=== PATIENT | male | born 1975 ===

== ENCOUNTER 2018-03-10 12:11 | Emergency (ER) | payer MEDICARE ==
--- NOTE | 2018-03-10 12:26 | ER Report ---
History and Physical Time Seen By MD: 12:26 Hx. of Stated Complaint: LOSS OF APPETITE, WEAKNESS, ANXIETY HPI/ROS CHIEF COMPLAINT: Vomiting, nausea, unable to eat HISTORY OF PRESENT ILLNESS: 43-year-old male patient presents to emergency room with complaint of vomiting, nausea, unable to eat. Patient states that this been going on for the past month. He states over that time he's lost proximal to 25 pounds. He states that historically been taking marijuana to help with his appetite, however he is not been taking that. He does have significant amounts of anxiety associated with eating. He states that is due to his history of throat cancer and surgeries he has had associated with that. Patient states that he did have a PEG tube which was placed. He states that during that surgery that they had some arteries and he never healed right. Patient states he has persistent pain with eating as a result of that. He denies having any fevers or chills. He states his been trying to drink plenty of fluids. REVIEW OF SYSTEMS: Respiratory: No cough, no dyspnea. Cardiovascular: No chest pain, no palpitations. Gastrointestinal: As noted above Musculoskeletal: No back pain. Allergies: Coded Allergies: metoclopramide (Verified Allergy, Unknown, 03/10/18) ondansetron (Verified Allergy, Unknown, 03/10/18) STATES "I CAN HAVE THE BRAND NAME, BUT NOT THIS" promethazine (Verified Allergy, Unknown, 03/10/18) Home Meds Active Scripts Hydrocodone Bit/Acetaminophen (HYDROCODON-ACETAMINOPHEN 5-325) 1 Each Tablet, 1 EACH PO Q4-6H PRN for PAIN, #8 TAB Prov:BANDAR NUNEZP 03/10/18 Ondansetron Hcl (ZOFRAN) 4 Mg Tablet, 4 MG PO Q6H PRN for NAUSEA/VOMITING, #20 TAB Prov:BANDAR NUNEZ [facility] 03/10/18 Past Medical/Surgical History Patient has a past medical history of marijuana use, tonsil and thyroid cancer. Patient has a surgical history of numerous abdominal surgeries, PEG tube placement and removal. Reviewed Nurses Notes: Yes Constitutional Vital Sign - Last 24 Hours 03/10/18 03/10/18 03/10/18 03/10/18 12:22 12:30 13:00 13:30 Temp 98.8 Pulse 116 109 110 95 Resp 20 B/P (MAP) 127/91 122/90 (101) 131/78 (95) 121/75 (90) Pulse Ox 90 92 95 92 O2 Delivery Room Air 03/10/18 03/10/18 14:00 14:21 Pulse 94 B/P (MAP) 107/75 (86) 114/76 (89) Pulse Ox 92 Physical Exam General Appearance: The patient is alert, has no immediate need for airway protection and no current signs of toxicity. Respiratory: Chest is non tender, lungs are clear to auscultation. Cardiac: regular rate and rhythm Gastrointestinal: Abdomen is soft and tender, no masses, bowel sounds are hypoactive. Musculoskeletal: Neck: Neck is supple and non tender. Extremities have full range of motion and are non tender. Skin: No rashes or lesions. Patient has numerous scars on abdomen DIFFERENTIAL DIAGNOSIS: After history and physical exam differential diagnosis was considered for electrical abnormality, inability to eat, malnutrition. Medical Decision Making Data Points Result Diagram: 03/10/18 1242 03/10/18 1242 Laboratory Hematology Test 03/10/18 12:21 03/10/18 12:42 Urine Color Yellow Urine Clarity Clear Urine pH 7.0 pH (4.8-9.5) Urine Specific [place] 1.027 Urine Protein 30 mg/dL (NEGATIVE) Urine Glucose (UA) Negative mg/dL (NEGATIVE) Urine Ketones 20 mg/dL (NEGATIVE) Urine Blood Negative (NEGATIVE) Urine Nitrite Negative (NEGATIVE) Urine Bilirubin Negative (NEGATIVE) Urine Urobilinogen Negative mg/dL (0.2-1.9) Urine Leukocyte Esterase Negative (NEGATIVE) Urine RBC None /HPF (0-2/HPF) Urine WBC 1 /HPF (0-5/HPF) Urine Squamous Epithelial Cells Few /LPF (</=FEW) Urine Transitional Epithelial Cells Few /LPF (NONE-FEW) Urine Bacteria Negative /HPF (NONE-FEW) Urine Mucus Few /HPF (NONE-FEW) Red Blood Count 4.03 M/uL (4.00-5.60) Mean Corpuscular Volume 96.6 fL (80.0-96.0) Mean Corpuscular Hemoglobin 33.0 pg (26.0-33.0) Mean Corpuscular Hemoglobin Concent 34.2 g/dL (32.0-36.0) Red Cell Distribution Width 13.3 % (11.5-14.5) Mean Platelet Volume 7.4 fL (7.2-11.1) Neutrophils (%) (Auto) 67.4 % (39.4-72.5) Lymphocytes (%) (Auto) 24.4 % (17.6-49.6) Monocytes (%) (Auto) 7.8 % (4.1-12.4) Eosinophils (%) (Auto) 0.2 % (0.4-6.7) Basophils (%) (Auto) 0.2 % (0.3-1.4) Nucleated RBC Relative Count (auto) 0.0 /100WBC Neutrophils # (Auto) 3.6 K/uL (2.0-7.4) Lymphocytes # (Auto) 1.3 K/uL (1.3-3.6) Monocytes # (Auto) 0.4 K/uL (0.3-1.0) Eosinophils # (Auto) 0.0 K/uL (0.0-0.5) Basophils # (Auto) 0.0 K/uL (0.0-0.1) Nucleated RBC Absolute Count (auto) 0.00 K/uL Sodium Level 138 mmol/L (137-145) Potassium Level 4.2 mmol/L (3.5-5.0) Chloride Level 100 mmol/L (98-107) Carbon Dioxide Level 26 mmol/L (22-30) Blood Urea Nitrogen 30 mg/dl (9-21) Creatinine 1.10 mg/dl (0.66-1.25) Glomerular Filtration Rate Calc > 60.0 Random Glucose 104 mg/dl (75-110) Calcium Level 9.9 mg/dl (8.4-10.2) Total Bilirubin 0.7 mg/dl (0.2-1.3) Aspartate Amino Transf (AST/SGOT) 65 U/L (0-35) Alanine Aminotransferase (ALT/SGPT) 22 U/L (0-56) Alkaline Phosphatase 65 U/L (0-126) C-Reactive Protein 2.9 mg/dl (<1.0) Total Protein 7.6 g/dl (6.3-8.2) Albumin 4.3 g/dl (3.5-5.0) Amylase Level 60 U/L (0-110) Lipase 40 U/L (23-300) Chemistry Test 03/10/18 12:21 03/10/18 12:42 Urine Color Yellow Urine Clarity Clear Urine pH 7.0 pH (4.8-9.5) Urine Specific [place] 1.027 Urine Protein 30 mg/dL (NEGATIVE) Urine Glucose (UA) Negative mg/dL (NEGATIVE) Urine Ketones 20 mg/dL (NEGATIVE) Urine Blood Negative (NEGATIVE) Urine Nitrite Negative (NEGATIVE) Urine Bilirubin Negative (NEGATIVE) Urine Urobilinogen Negative mg/dL (0.2-1.9) Urine Leukocyte Esterase Negative (NEGATIVE) Urine RBC None /HPF (0-2/HPF) Urine WBC 1 /HPF (0-5/HPF) Urine Squamous Epithelial Cells Few /LPF (</=FEW) Urine Transitional Epithelial Cells Few /LPF (NONE-FEW) Urine Bacteria Negative /HPF (NONE-FEW) Urine Mucus Few /HPF (NONE-FEW) White Blood Count 5.3 k/uL (4.5-11.0) Red Blood Count 4.03 M/uL (4.00-5.60) Hemoglobin 13.3 g/dL (14.0-18.0) Hematocrit 38.9 % (42.0-52.0) Mean Corpuscular Volume 96.6 fL (80.0-96.0) Mean Corpuscular Hemoglobin 33.0 pg (26.0-33.0) Mean Corpuscular Hemoglobin Concent 34.2 g/dL (32.0-36.0) Red Cell Distribution Width 13.3 % (11.5-14.5) Platelet Count 198 K/uL (150-450) Mean Platelet Volume 7.4 fL (7.2-11.1) Neutrophils (%) (Auto) 67.4 % (39.4-72.5) Lymphocytes (%) (Auto) 24.4 % (17.6-49.6) Monocytes (%) (Auto) 7.8 % (4.1-12.4) Eosinophils (%) (Auto) 0.2 % (0.4-6.7) Basophils (%) (Auto) 0.2 % (0.3-1.4) Nucleated RBC Relative Count (auto) 0.0 /100WBC Neutrophils # (Auto) 3.6 K/uL (2.0-7.4) Lymphocytes # (Auto) 1.3 K/uL (1.3-3.6) Monocytes # (Auto) 0.4 K/uL (0.3-1.0) Eosinophils # (Auto) 0.0 K/uL (0.0-0.5) Basophils # (Auto) 0.0 K/uL (0.0-0.1) Nucleated RBC Absolute Count (auto) 0.00 K/uL Glomerular Filtration Rate Calc > 60.0 Calcium Level 9.9 mg/dl (8.4-10.2) Total Bilirubin 0.7 mg/dl (0.2-1.3) Aspartate Amino Transf (AST/SGOT) 65 U/L (0-35) Alanine Aminotransferase (ALT/SGPT) 22 U/L (0-56) Alkaline Phosphatase 65 U/L (0-126) C-Reactive Protein 2.9 mg/dl (<1.0) Total Protein 7.6 g/dl (6.3-8.2) Albumin 4.3 g/dl (3.5-5.0) Amylase Level 60 U/L (0-110) Lipase 40 U/L (23-300) Urinalysis Test 03/10/18 12:21 Urine Color Yellow Urine Clarity Clear Urine pH 7.0 pH (4.8-9.5) Urine Specific [place] 1.027 Urine Protein 30 mg/dL (NEGATIVE) Urine Glucose (UA) Negative mg/dL (NEGATIVE) Urine Ketones 20 mg/dL (NEGATIVE) Urine Blood Negative (NEGATIVE) Urine Nitrite Negative (NEGATIVE) Urine Bilirubin Negative (NEGATIVE) Urine Urobilinogen Negative mg/dL (0.2-1.9) Urine Leukocyte Esterase Negative (NEGATIVE) Urine RBC None /HPF (0-2/HPF) Urine WBC 1 /HPF (0-5/HPF) Urine Squamous Epithelial Cells Few /LPF (</=FEW) Urine Transitional Epithelial Cells Few /LPF (NONE-FEW) Urine Bacteria Negative /HPF (NONE-FEW) Urine Mucus Few /HPF (NONE-FEW) ED Course/Re-evaluation ED Course Patient was admitted and examined, history and physical were obtained. Differential diagnoses were considered. On examination lungs are clear, heart is regular, abdomen is soft and tender to palpation. Patient does have significant scarring to his abdomen. A CBC, CMP, CRP, amylase, lipase, urinalysis were done. Patient did have an elevated BUN of 30, he also had ketones in his urine. Patient appears to be dehydrated. His results he did receive 2 L of normal saline. I offered him Zofran, which he states his only medication help with his nausea. However he states that he has an allergy to generic Zofran. 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 As a result we will not treat him here in the emergency room. We will go ahead and discharge patient home. Patient will be discharged home with prescription for Zofran ODT, brand name, as well as a nondisplaced pain medication which they requested. Patient is to follow-up with his primary care provider when he returns home to [place]. Patient verbalized u nderstanding and agreement with plan. Decision to Disposition Date: Mar 10, 2018 Decision to Disposition Time: 14:20 Depart Departure Latest Vital Signs Vital Signs Date Time Temp Pulse Resp B/P (MAP) Pulse Ox O2 Delivery O2 Flow Rate FiO2 03/10/18 14:21 114/76 (89) 03/10/18 14:00 94 92 03/10/18 12:22 98.8 20 Room Air Impression: Primary Impression: Dehydration Additional Impressions: Nausea Abdominal pain Condition: Improved Disposition: HOME OR SELF-CARE New Scripts Hydrocodone Bit/Acetaminophen (HYDROCODON-ACETAMINOPHEN 5-325) 1 Each Tablet 1 EACH PO Q4-6H PRN for PAIN, #8 TAB Prov: BANDAR NUNEZ 03/10/18 Ondansetron Hcl (ZOFRAN) 4 Mg Tablet 4 MG PO Q6H PRN for NAUSEA/VOMITING, #20 TAB Prov: BANDAR NUNEZ 03/10/18 Patient Instructions: Dehydration (ED) Additional Instructions: Increase fluid intake. Get plenty of rest. I would encourage eating soft foods, pudding, rice, jello, bananas etc. Limit activity by pain. Follow up with your primary care provider when you return to home. Return to the ER if condition worsens. Problem Qualifiers Additional Impressions: Abdominal pain Abdominal location: generalized Qualified Codes: R10.84 - Generalized abdominal pain BANDAR NUNEZ Mar 10, 2018 12:26
[2018-03-10] MEDS ORDERED: NS(*) 0.9% 1000 ML BAG 1,000 ML IV ONE ×2 (12:37→13:20)
[2018-03-10] MEDS ORDERED: MORPHINE 2 MG/ML SYR IVP ONE (12:40)
[2018-03-10 12:56] LABS: PLATELET COUNT, AUTOMATED 198 K/uL (150-450)
[2018-03-10] MEDS ORDERED: ONDANSETRON 4 MG/2 ML VIAL IVP ONE (13:20)
[2018-03-10] MEDS ORDERED: HYDR-385 PO (14:17)
[2018-03-10] MEDS ORDERED: ONDA4TAB97 PO (14:17)
[2018-03-10 14:21] VITALS: BP 114/76
== END 2018-03-10 14:37 | disposition home or self-care (01) ==
LOC: ER 12:22
DX: E86.0 Dehydration (principal); R11.0 Nausea; R10.84 Generalized abdominal pain
CPT/HCPCS: 81001; 82150; 83690; 85025; 86140; 87088; 96361; 96374; 99283; J2270; J7030; 82040; 82247; 82310; 82374; 82435; 82565; 82947; 84075; 84132; 84155; 84295; 84450; 84460; 84520